=== PATIENT | female | born 1960 | race Hispanic/Latino ===

== ENCOUNTER 2024-08-17 15:47 | Emergency (ER) | payer OTHER ==
[2024-08-17] MEDS ORDERED: IBUPROFEN 400 MG TAB ONE (16:51)
[2024-08-17] MEDS ORDERED: CYCLOBENZAPRINE 10 MG TAB ONE (16:51)
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
[2024-08-17 18:57] VITALS: O2SAT 98
[2024-08-17 18:59] VITALS: BP 160/87; TEMP 97.1
== END 2024-08-17 18:50 | disposition home or self-care (01) ==
LOC: ER 15:47
DX: M54.2 Cervicalgia (principal); M54.50 Low back pain, unspecified; V59.40XA Driver of pick-up truck or van injured in collision with unspecified motor vehicles in traffic accident, initial encounter
CPT/HCPCS: 70450; 72125; 72131; 99284